=== PATIENT | male | born 1945 | race Caucasian/White ===

== ENCOUNTER → 2019-03-16 | Outpatient (CLI) | payer MEDICARE ==
--- NOTE | 2019-03-16 14:50 | KCIC ---
EXAM: Thoracic spine, 3 views; cervical spine, 5 views. HISTORY: Acute pain. COMPARISON: None. FINDINGS: Cervical spine: 5 views of cervical spine are obtained. There is minimal retrolisthesis of C5 on C6. There is disc space narrowing and osteophytosis at this level. There is mild multilevel facet arthropathy. There is foraminal stenosis on the right at C4-C5 and left at C5-C6. No fracture is seen. Thoracic spine: 3 views of the thoracic spine are obtained. There is minimal thoracic curvature. There are large bulky anterior osteophytes at the upper and mid thoracic levels. There is no significant listhesis. No fracture is seen. IMPRESSION: 1. Multilevel degenerative change involving the cervical spine, primarily at C5-C6. 2. Large bulky anterior osteophytes at the upper and mid thoracic levels. Electronically signed by: Zahra Dyer MD (03/16/2019 2:47 PM) [id number]
== END | disposition home or self-care (01) ==
LOC: KCIC 09:19
PROVIDERS: ATTEND Family Medicine
DX: M47.812 Spondylosis without myelopathy or radiculopathy, cervical region (principal); M48.02 Spinal stenosis, cervical region; M46.82 Other specified inflammatory spondylopathies, cervical region; M25.78 Osteophyte, vertebrae
CPT/HCPCS: 72050; 72072